=== PATIENT | male | born 1955 | race Caucasian/White ===

== ENCOUNTER 2017-12-27 21:45 | Inpatient (IN) | payer BC ==
[~2017-12-27] VITALS: Ht 172.7 cm; Wt 107.6 kg
[~2017-12-27 21:45] MED LIST: AMBIEN5 MG PO; CAMPRAL333 MG OR; DUONEB IN; FOLIC ACID1 MG OR; LACTULOS2 XX; LIBRIUM25 MG OR; MEDDOSEPAK PO; NO HOME MEDS; OMEPRAZOLE20 MG OR; PERCOCET 10/31 COMBO PO; SPIRONOLACT25 MG OR; VITAMIN B-1100 M1 OR; XANAX0.25 MG PO; ZPAK PO; [UNRECOGNIZED DRUG - REMARK]
--- NOTE | 2017-12-27 22:01 | NUR ---
PT ARRIVED VIA EMS TO ER ROOM 10. PT APPEARS TO BE INTOXICATED. STATES HE STARTED DRINKING VODKA LAST NIGHT. ALSO STATES HIS FRIEND MANUELA LOMBARDO WILL COME PICK HIM UP. MD & RN @ BEDSIDE. PT CHANGED INTO A GOWN, ON MONITOR. SIDE RAILS UP, BED IN LOWEST POSITION, WHEELS LOCKED, CALLBELL W/IN REACH.
--- NOTE | 2017-12-27 22:12 | NUR ---
breathing treatment given. breathing tech. for good deposition to the lungs.
[2017-12-27 22:18] LABS: HEMATOCRIT 47.3 % (39.0-50.0); HEMOGLOBIN 16.2 g/dl (14.0-18.0); IMMATURE GRANULOCYTES 0.5 % (0.0-1.0); MEAN CELL VOLUME 101.5 fL CALC (80.0-100.0); MEAN CORPUSCULAR HGB 34.8 pG CALC (26.0-32.0); MEAN CORPUSCULAR HGB CONC 34.2 g/L CALC (32.0-36.0); NEUT# 2.4 thou/uL (1.82-7.42); RED BLOOD COUNT 4.66 mill/uL (4.70-6.10)
--- NOTE | 2017-12-27 22:18 | NUR ---
iv solu-medrol given as per md order.
[2017-12-27 22:32] LABS: ALBUMIN 4.1 g/dL (3.2-5.0); ALKALINE PHOSPHATASE 129 u/l (38-126); ANION GAP 21 (6-22 (CALC)); BILIRUBIN, TOTAL 0.4 mg/dL (0.0-1.4); BUN 5 mg/dL (9-20); BUN/CREATININE RATIO 6 (12-20 (CALC)); CARBON DIOXIDE 24 mmol/l (22-30); CHLORIDE 108 mmol/l (95-108); CREATININE 0.8 mg/dL (0.7-1.3); GFR > 60 ML/MIN (>=60 (CALC)); GFR FOR AFR.AMER. > 60 ML/MIN (>=60 (CALC)); POTASSIUM 3.6 mmol/l (3.5-5.1); SGOT/AST 49 u/l (17-59); SGPT/ALT 38 u/l (21-72); SODIUM 150 mmol/l (137-146); TOTAL PROTEIN 7.3 g/dL (6.3-8.2)
[2017-12-27 22:36] LABS: INTERNATIONAL NORMALIZED RATIO 1.1 RATIO (0.7-1.3); PROTHROMBIN TIME 12.4 SECONDS (9.0-12.5)
[2017-12-27 22:40] LABS: MYOGLOBIN 40 ng/mL (0 - 121)
[2017-12-27 22:43] LABS: ETHYL ALCOHOL 407 mg/dl (0-30)
--- NOTE | 2017-12-27 23:18 | NUR ---
PT. OOB RETURNED TO BED PT. STATING, " DON'T YOU KNOW I HAVE BRONCHITIS?"
--- NOTE | 2017-12-27 23:31 | NUR ---
ivf started as per md order.
--- NOTE | 2017-12-27 23:40 | NUR ---
iv abt. given as per md order.
--- NOTE | 2017-12-27 23:45 | NUR ---
BREATHING TREATMENT GIVEN.
--- NOTE | 2017-12-28 00:30 | NUR ---
Admission Note Report Given to: AMINTA MCCARTNEY Transported by: Wheelchair X Stretcher Transported with: Nurse X Transporter X Patent IV X O2 X Geomagnetist
[2017-12-28 00:35] VITALS: BP 149/80
--- NOTE | 2017-12-28 00:35 | NUR ---
PT ARRIVED TO UNIT VIA STRETCHER WITH EF STAFF. AMBULATED TO BED WITH ONE PERSON ASSIST. DENIES PAIN CURRENTLY. RESPIRATIONS EVEN AND UNLABORED ON OXYGEN. OREINTED TO ROOM AND CALL LIGHT SYSTEM. PT IS ALERT AND ORIENTED. PLEASANT AND VERY TALKATIVE AND RESTLESS. SAFETY MEASURES IMPLEMENTED AND REINFORCED INCLUDING FALL RISK. CALL LIGHT WITHIN REACH.
--- NOTE | 2017-12-28 00:45 | NUR ---
PT. TRANSFERED TO NC VIA STRETCHER.
[2017-12-28 04:00] VITALS: BP 122/66
[2017-12-28 04:04] LABS: URINE BILIRUBIN - DIPSTICK NEGATIVE (NEGATIVE); URINE BLOOD DIPSTICK TRACE-INTACT (NEGATIVE); URINE COLOR YELLOW; URINE GLUCOSE - DIPSTICK NEGATIVE (NEGATIVE); URINE KETONE TRACE mg/dL (NEGATIVE); URINE LEUK ESTERASE NEGATIVE (NEGATIVE); URINE NITRITE - DIPSTICK NEGATIVE (Negative); URINE PH 5.5 (4.5-8.0); URINE PROTEIN - DIPSTICK 100 mg/dL (NEG-TRACE); URINE SPECIFIC GRAVITY >=1.030
[2017-12-28 04:06] LABS: URINE CLARITY CLEAR
[2017-12-28 04:09] LABS: BARBITURATES NEGATIVE (NEGATIVE); COCAINE NEGATIVE (NEGATIVE); METHADONE NEGATIVE (NEGATIVE); OXCYCODONE NEGATIVE (NEGATIVE); TETRAHYDROCANNABIONOL NEGATIVE (NEGATIVE); TRICYLIC ANTIDEPRESSANTS NEGATIVE (NEGATIVE)
[2017-12-28 04:15] LABS: URINE BACTERIA FEW hpf; URINE HYALINE CAST FEW lpf (NONE-RARE); URINE MUCUS MODERATE hpf (NONE-FEW); URINE SQUAMOUS EPITHELIAL CELL FEW EPI/hpf (0-FEW)
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
--- NOTE | 2017-12-28 07:00 | NUR ---
RECEIVED BEDSIDE REPORT FROM AMINTA OWENS. RESTING IN BED ON RIGHT SIDE. RESPS EVEN AND UNLABORED ON O2 VIA NC, TELE MONITOR IN PLACE. C/O NAUSEA WITH DRY HEAVES, WILL MEDICATE PER MAR. PLAN OF CARE DISCUSSED. SAFETY PRECAUTIONS REINFORCED. BED IN LOWEST POSITION WITH WHEELS LOCKED. CALL LIGHT WITHIN REACH. ENCOURAGED PT TO CALL FOR ANY NEEDS.
[2017-12-28 07:10] VITALS: BP 127/66
--- NOTE | 2017-12-28 07:10 | NUR ---
REPORT RECEIVED FROM AMINTA Leblanc PT IS LYING IN BED WITH HIS EYES CLOSED. PT EASILY AROUSED. VITALS OBTAINED, ALL WITHIN NORMAL LIMITS. PT INFORMED TO CALL IF HE NEEDS ASSISTANCE. PT DOES NOT EXPRESS ANY PROBLEMS AT THIS TIME. WILL CONTINUE TO MONITOR.
--- NOTE | 2017-12-28 08:00 | NUR ---
PT. IS SITTING IN BED AWAKE. PT. DID REFUSE TO EAT BREAKFAST AND STATES "I DONT FEEL WELL". PT IS AWAKE, ALERT, AND ORIENTED. PUPILS ARE BRISK, 3MM. PERRLA. CAP REFILL <3. TELEMETRY IS IN PLACE. PT. BREATHING IS LABORED ON EXERTION. COURSE BREATH SOUNDS, NON PRODUCTIVE COUGH. PT. 02 IS 93 ON 2 LITERS VIA NASAL CANULA. BOWEL SOUNDS ARE ACTIVE IN ALL FOUR QUADRANTS. ABDOMEN IS DISTENDED BUT SOFT. PT. STATES HE HAS NO PAIN. NO EDEMA NOTED IN LEGS. RADIAL AND PEDAL PULSES ARE STRONG. PT. HAS A 20 GUAGE IN HIS R. HAND. PT. HAS NO CONCERNS AT THIS TIME. SAFETY PRECAUTIONS REINFORCED. CALL LIGHT WITHIN REACH. WILL CONTINUE TO MONITOR.
--- NOTE | 2017-12-28 08:00 | NUR ---
PT. IS SITTING IN BED AWAKE. PT. DID REFUSE TO EAT BREAKFAST AND STATES "I DONT FEEL WELL". PT. IS AWAKE, ALERT, AND ORIENTED. PUPILS ARE BRISK, 3MM. PERRLA. CAP REFILL <3. TELEMETRY IS IN PLACE. PT. BREATHING IS LABORED ON EXERTION. COURSE BREATH SOUNDS, NON PRODUCTIVE COUGH. PT. 02 IS 93 ON 2 LITERS VIA NASAL CANULA. BOWEL SOUNDS ARE ACTIVE IN ALL FOUR QUADRANTS. ABDOMEN IS DISTENDED BUT SOFT.PT STATES HE HAS NO PAIN. NO EDEMA NOTED IN LEGS. RADIAL AND PEDAL PULSES ARE STRONG. PT. HAS A 20 GAUGE IN HIS R. HAND. PT. HAS NO CONCERNS AT THIS TIME. SAFTY PRECAUTIONS REINFORCED. CALL LIGHT WITHIN REACH. WILL CONTINUE TO MONITOR.
--- NOTE | 2017-12-28 08:15 | NUR ---
RESTING IN BED ON LEFT SIDE. MEDICATED WITH LIBRIUM PO FOR C/O ANXIETY WITH MILD TREMORS. RESPS EVEN AND UNLABORED ON O2 VIA NC, TELE MONITOR IN PLACE. #20 RH INFUSING WITHOUT DIFFICULTY, SITE APPEARS HEALTHY. CALL LIGHT WITHIN REACH. WILL CONTINUE TO MONITOR.
[2017-12-28 09:34] LABS: ANION GAP 24 (6-22 (CALC)); BUN 6 mg/dL (9-20); BUN/CREATININE RATIO 7 (12-20 (CALC)); CALCULATED LDLCHOLESTEROL 68 mg/dL (62-129 (CALC)); CARBON DIOXIDE 18 mmol/l (22-30); CHLORIDE 110 mmol/l (95-108); CHOLESTEROL HDL RATIO 2.5 (<4.4 (CALC)); CREATININE 0.9 mg/dL (0.7-1.3); GFR > 60 ML/MIN (>=60 (CALC)); GFR FOR AFR.AMER. > 60 ML/MIN (>=60 (CALC)); HDL CHOLESTEROL 54 mg/dL (>=40); MAGNESIUM 1.4 mg/dL (1.6-2.3); POTASSIUM 3.8 mmol/l (3.5-5.1); SODIUM 148 mmol/l (137-146); TOTAL CHOLESTEROL 133 mg/dl (0-199); TOTAL TRIGLYCERIDES 56 mg/dl (30-149); VLDL CHOLESTROL 11 mg/dl (4-45 (CALC))
[2017-12-28 09:37] LABS: HEMATOCRIT 47.2 % (39.0-50.0); HEMOGLOBIN 15.7 g/dl (14.0-18.0); IMMATURE GRANULOCYTES 0.3 % (0.0-1.0); MEAN CELL VOLUME 104.7 fL CALC (80.0-100.0); MEAN CORPUSCULAR HGB 34.8 pG CALC (26.0-32.0); MEAN CORPUSCULAR HGB CONC 33.3 g/L CALC (32.0-36.0); NEUT# 3.48 thou/uL (1.82-7.42); RED BLOOD COUNT 4.51 mill/uL (4.70-6.10); RED CELL DISTRI WIDTH 15.3 % (11.5-15.5)
[2017-12-28 11:20] VITALS: BP 112/64
--- NOTE | 2017-12-28 11:30 | NUR ---
SITTING ON EDGE OF BED. RESPS EVEN AND UNLABORED ON O2 VIA NC, TELE MONITOR IN PLACE. MEDICATED WITH ZOFRAN 4MG IVP FOR NAUSEA WITH DRY HEAVES. #20 RH INFUSING WITHOUT DIFFICULTY, SITE APPEARS HEALTHY. CALL LIGHT WITHIN REACH. WILL CONTINUE TO MONITOR.
[2017-12-28 15:17] VITALS: BP 137/54
--- NOTE | 2017-12-28 15:50 | NUR ---
RESTING IN SUPINE POSITION WITCHING TV. RESPS EVEN AND UNLABORED ON O2 VIA NC, TELE MONITOR IN PLACE. #20 RH INFUSING WITHOUT DIFFICULTY, SITE APPEARS HEALTHY. DENIES PAIN OR DISCOMFORT. DR ZAMAN IN WITH PT, NEW ORDERS RECEIVED. CALL LIGHT STACEYFriendCodeBASSAM OWENS. WILL CONTINUE TO MONITOR.
[2017-12-28 19:06] VITALS: BP 107/52
--- NOTE | 2017-12-28 19:20 | NUR ---
PT DENIES ANY PAIN OR DISCOMFORT. RESP EVEN AND UNLABORED WITH O2 IN PLACE. NO DISTRESS NOTED. TELE IN PLACE. ABD DISTENDED; SOFT. BOWEL SOUNDS PRESENT. PEDAL PULSES PALPATED BILAT. IV RH FLUSHED WITHOUT DIFFICULTY. FREQUENT ROUNDS MADE. SAFETY PRECAUTIONS REINFORCED. CALL LIGHT WITHIN REACH.
[2017-12-28 20:56] LABS: ALBUMIN 3.3 g/dL (3.2-5.0); BILIRUBIN, TOTAL 0.4 mg/dL (0.0-1.4); TOTAL PROTEIN 6.1 g/dL (6.3-8.2)
[2017-12-28 21:31] LABS: INFLUENZA A NONE DETECTED (NONE DETECT); INFLUENZA B NONE DETECTED (NONE DETECT)
--- NOTE | 2017-12-29 00:15 | NUR ---
RESP EVEN AND UNLABORED WITH O2 IN PLACE. NO DISTRESS NOTED. TELE IN PLACE. CALL LIGHT WITHIN REACH.
[2017-12-29 00:33] VITALS: BP 129/74
--- NOTE | 2017-12-29 04:10 | NUR ---
ASSESSMENT UNCHANGED. RESP EVEN AND UNLABORED. TELE IN PLACE. NO DISTRESS NOTED. CALL LIGHT WITHIN REACH.
[2017-12-29 04:45] VITALS: BP 138/71
[2017-12-29 06:29] LABS: HEMATOCRIT 42.6 % (39.0-50.0); HEMOGLOBIN 14.5 g/dl (14.0-18.0); IMMATURE GRANULOCYTES 1.8 % (0.0-1.0); MEAN CELL VOLUME 102.4 fL CALC (80.0-100.0); MEAN CORPUSCULAR HGB 34.9 pG CALC (26.0-32.0); NEUT# 5.91 thou/uL (1.82-7.42); RED BLOOD COUNT 4.16 mill/uL (4.70-6.10); RED CELL DISTRI WIDTH 14.9 % (11.5-15.5)
[2017-12-29 06:40] LABS: ANION GAP 17 (6-22 (CALC)); BUN 6 mg/dL (9-20); BUN/CREATININE RATIO 8 (12-20 (CALC)); CARBON DIOXIDE 23 mmol/l (22-30); CHLORIDE 109 mmol/l (95-108); CREATININE 0.8 mg/dL (0.7-1.3); GFR > 60 ML/MIN (>=60 (CALC)); GFR FOR AFR.AMER. > 60 ML/MIN (>=60 (CALC)); MAGNESIUM 1.8 mg/dL (1.6-2.3); POTASSIUM 3.3 mmol/l (3.5-5.1); SODIUM 146 mmol/l (137-146)
--- NOTE | 2017-12-29 07:00 | NUR ---
RECEIVED BEDSIDE REPORT FROM GEORGE OWENS. RESTING IN SUPINE POSITION WITH EYES CLOSED, AWAKENS EASILY RESPS EVEN AND UNLABORED ON O2 VIA NC, TELE MONITOR IN PLACE. DENIES PAIN OR DISCOMFORT. SAFETY PRECAUTIONS REINFORCED. BED IN LOWEST POSITION WITH WHEELS LOCKED. CALL LIGHT WITHIN REACH. ENCOURAGED PT TO CALL FOR ANY NEEDS.
[2017-12-29 08:10] VITALS: BP 124/53
--- NOTE | 2017-12-29 10:45 | NUR ---
AMBULATING IN HALLWAY WITH STEADY GAIT. NO APPARENT DISTRESS NOTED. WILL CONTINUE TO MONITOR.
[2017-12-29 11:09] VITALS: BP 129/67
--- NOTE | 2017-12-29 12:40 | NUR ---
DR ZAMAN IN WITH PT, NEW ORDERS RECEIVED.
[2017-12-29] MEDS ORDERED: COMBIVENT RESPIMAT IN (13:05)
[2017-12-29] MEDS ORDERED: ZITHROMAX250 MG PO (13:05)
[2017-12-29] MEDS ORDERED: PREDNISONE10 MG PO (13:05)
[2017-12-29] MEDS ORDERED: LIBRIUM25 M1 PO (13:05)
--- NOTE | 2017-12-29 14:00 | NUR ---
Discharge instructions given. Patient verbalizes understanding of same. Discharged in stable condition via Ambulatory to Home with family. All belongings sent with pt.
== END 2017-12-29 14:00 | disposition home or self-care (01) | DRG 191 ==
LOC: ED 21:45 → ED-I 23:00 → ED 23:55 → MS2 23:56
PROVIDERS: Emergency Medicine; Nurse Practitioner Family; ADMIT Internal Medicine; ATTEND Internal Medicine
DX: J44.1 Chronic obstructive pulmonary disease with (acute) exacerbation (principal); F10.239 Alcohol dependence with withdrawal, unspecified; K70.31 Alcoholic cirrhosis of liver with ascites; E83.42 Hypomagnesemia; F10.229 Alcohol dependence with intoxication, unspecified; F17.210 Nicotine dependence, cigarettes, uncomplicated; Y90.8 Blood alcohol level of 240 mg/100 ml or more; F41.8 Other specified anxiety disorders; R09.02 Hypoxemia; R06.89 Other abnormalities of breathing

== ENCOUNTER 2019-03-03 11:48 | Emergency (ER) | payer BC ==
[~2019-03-03] VITALS: Ht 172.7 cm; Wt 90.0 kg
[~2019-03-03 11:48] MED LIST changes: +COMBIVENT RESPIMAT IN; +LIBRIUM25 M1 PO; +PREDNISONE10 MG PO; +ZITHROMAX250 MG PO
[2019-03-03 13:03] LABS: PROTHROMBIN TIME 10.9 SECONDS (9.0-12.5)
[2019-03-03 13:14] LABS: LIPASE 169 u/l (23-300)
[2019-03-03 13:22] LABS: ETHYL ALCOHOL 325 mg/dl (0-30)
[2019-03-03 13:31] LABS: ALKALINE PHOSPHATASE 98 u/l (38-126); BILIRUBIN, TOTAL 0.9 mg/dL (0.0-1.4); BUN 14 mg/dL (8-23); BUN/CREATININE RATIO 16 (12-20 (CALC)); CARBON DIOXIDE 21 mmol/l (22-30); CHLORIDE 107 mmol/l (95-108); CREATININE 0.9 mg/dL (0.7-1.3); GFR > 60 ML/MIN (>=60 (CALC)); GFR FOR AFR.AMER. > 60 ML/MIN (>=60 (CALC)); SODIUM 146 mmol/l (137-146)
[2019-03-03 13:32] LABS: ALBUMIN 4.6 g/dL (3.2-5.0); ANION GAP 22 (6-22 (CALC)); POTASSIUM 4.2 mmol/l (3.5-5.1); SGOT/AST 80 u/l (19-48); TOTAL PROTEIN 7.9 g/dL (6.3-8.2)
[2019-03-03 14:56] VITALS: BP 137/64
== END 2019-03-03 15:00 | disposition home or self-care (01) | DRG 897 ==
LOC: ED 11:48
PROVIDERS: Emergency Medicine
DX: F10.229 Alcohol dependence with intoxication, unspecified (principal); K70.31 Alcoholic cirrhosis of liver with ascites; F17.210 Nicotine dependence, cigarettes, uncomplicated

== ENCOUNTER 2019-04-23 15:35 | Emergency (ER) | payer BC ==
[~2019-04-23] VITALS: Ht 172.7 cm; Wt 110.0 kg
[2019-04-23] MEDS ORDERED: PRAVASTATIN10 MG PO (16:02)
[2019-04-23] MEDS ORDERED: KEFLEX500 M1 PO (17:03)
[2019-04-23 17:17] VITALS: BP 162/87
== END 2019-04-23 17:17 | disposition home or self-care (01) | DRG 605 ==
LOC: ED 15:35
PROC: 0HQGXZZ Repair Left Hand Skin, External Approach (ICD-10-PCS; principal; 2019-04-23)
DX: S61.211A Laceration without foreign body of left index finger without damage to nail, initial encounter (principal); W31.89XA Contact with other specified machinery, initial encounter; Y93.H2 Activity, gardening and landscaping; Y92.007 Garden or yard of unspecified non-institutional (private) residence as the place of occurrence of the external cause

== ENCOUNTER 2019-05-03 10:15 | Emergency (ER) | payer BC ==
[~2019-05-03] VITALS: Ht 172.7 cm; Wt 100.0 kg
[~2019-05-03 10:15] MED LIST changes: +KEFLEX500 M1 PO; +PRAVASTATIN10 MG PO
[2019-05-03 11:25] VITALS: BP 135/77
== END 2019-05-03 11:25 | disposition home or self-care (01) | DRG 950 ==
LOC: ED 10:15
DX: S61.211D Laceration without foreign body of left index finger without damage to nail, subsequent encounter (principal); F17.210 Nicotine dependence, cigarettes, uncomplicated; W29.3XXD Contact with powered garden and outdoor hand tools and machinery, subsequent encounter

== ENCOUNTER 2019-09-25 20:52 | Emergency (ER) | payer BC | END 2019-09-25 20:59 | disposition left against medical advice (07) | DRG 951 | LOC: ED 20:52 → LWOBS 20:59 | DX: Z53.29 Procedure and treatment not carried out because of patient's decision for other reasons (principal) ==